=== PATIENT | male | born 1940 | race Caucasian/White ===

== ENCOUNTER 2017-02-06 17:25 | Inpatient (IN) | payer MEDICARE, MEDICAID ==
[2017-02-06] MEDS: NYSTATIN OINTMENT 15 GM TOP (04:35)
[2017-02-06] MEDS: NS 1,000 ML IV (18:34)
[2017-02-06] MEDS ORDERED: BISACODYL 10 MG SUPP PR (18:45)
[2017-02-06] MEDS ORDERED: DEXTROSE 50% 50 ML SYRINGE IV (19:30)
[2017-02-06] MEDS ORDERED: GLUCAGON FOR INJ 1 MG VIAL (J1610) SC (19:30)
[2017-02-06] MEDS ORDERED: GLUCOSE 4 GM CHEW TABLET PO (19:30)
[2017-02-06 20:16] LABS: HEMATOCRIT 34.8 % (42.0-52.0); HEMOGLOBIN 11.6 g/dl (14.0-18.0)
[2017-02-06 20:41] LABS: LACTIC ACID SEPSIS PROTOCOL 1.1 MMOL/L (0.4-2.0)
[2017-02-06] MEDS: HumaLOG INSULIN (NovoLOG) PER UNIT SC (21:00)
[2017-02-06] MEDS: FENOFIBRATE 145 MG TAB (TRICOR) PO (21:00)
[2017-02-06 21:20] LABS: BEDSIDE GLUCOSE 217 MG/DL (83-110)
[2017-02-06] MEDS: DULoxetine 30 MG CAP (CYMBALTA) PO (22:44)
[2017-02-06] MEDS: DONEPEZIL 5 MG TAB PO (22:44)
[2017-02-06] MEDS: tiZANidine 4 MG TAB PO (22:44)
[2017-02-06] MEDS: PREGABALIN 100 MG CAP (LYRICA) PO (22:44)
[2017-02-06] MEDS: GABAPENTIN 100 MG CAP PO (22:44)
[2017-02-07 00:41] LABS: HEMATOCRIT 36.6 % (42.0-52.0)
[2017-02-07] MEDS: NS 1,000 ML IV (05:10)
[2017-02-07] MEDS: tiZANidine 4 MG TAB PO ×3 (06:05→22:00)
[2017-02-07 06:17] LABS: HEMATOCRIT 30.8 % (42.0-52.0); HEMOGLOBIN 10.1 g/dl (14.0-18.0); MEAN CORPUSCULAR HEMOGLOBIN 28.5 pg (27.0-33.0); MEAN CORPUSCULAR HGB CONC 32.8 g/dl (32.0-36.5); MEAN CORPUSCULAR VOLUME 86.8 fl (80.0-96.0); PLATELET COUNT, AUTOMATED 347 10^3/uL (150-450); RED BLOOD COUNT 3.55 10^6/uL (4.30-6.10); RED CELL DISTRIBUTION WIDTH 14.6 % (11.5-14.5); WHITE BLOOD COUNT 7.6 10^3/uL (4.0-10.0)
[2017-02-07 06:35] LABS: ALBUMIN 2.2 GM/DL (3.2-5.2); ALBUMIN/GLOBULIN RATIO 0.61 (1.00-1.93); ALKALINE PHOSPHATASE 35 U/L (45-117); ALT/SGPT 17 U/L (12-78); ANION GAP 11 MEQ/L (8-16); AST/SGOT 18 U/L (7-37); BILIRUBIN,TOTAL 0.3 MG/DL (0.2-1.0); BLOOD UREA NITROGEN 34 MG/DL (7-18); CALCIUM LEVEL 8.1 MG/DL (8.8-10.2); CARBON DIOXIDE LEVEL 23 MEQ/L (21-32); CHLORIDE LEVEL 112 MEQ/L (98-107); CREATININE FOR GFR 1.08 MG/DL (0.70-1.30); GLOMERULAR FILTRATION RATE > 60.0 (>42); GLUCOSE, FASTING 153 MG/DL (83-110); POTASSIUM SERUM 3.8 MEQ/L (3.5-5.1); SODIUM LEVEL 146 MEQ/L (136-145); TOTAL PROTEIN 5.8 GM/DL (6.4-8.2)
[2017-02-07] MEDS: HumaLOG INSULIN (NovoLOG) PER UNIT SC ×4 (07:30→21:00)
[2017-02-07] MEDS: METOPROLOL SUCC (TopROL XL) 50MG **XL** TAB PO (09:00)
[2017-02-07] MEDS: GABAPENTIN 100 MG CAP PO ×4 (09:00→21:00)
[2017-02-07] MEDS: PREGABALIN 100 MG CAP (LYRICA) PO ×2 (09:00→21:00)
[2017-02-07] MEDS: DULoxetine 30 MG CAP (CYMBALTA) PO ×2 (09:00→21:00)
[2017-02-07] MEDS: CEFTRIAXONE SOD 1 GM in APPROPRIATE DILUENT 1 EA IV (11:51)
[2017-02-07] MEDS ORDERED: PROPOFOL 200 MG/20 ML VIAL As Ordered (12:35)
[2017-02-07] MEDS ORDERED: fentaNYL 250 MCG/5 ML INJECTION (J3010) As Ordered (12:35)
[2017-02-07] MEDS ORDERED: dexameTHASONE 4 MG/ML 1ML VIAL (J1100) As Ordered (12:35)
[2017-02-07] MEDS ORDERED: LIDOCAINE 2% INJ 100 MG/5 ML SDV (FOR ANES.) As Ordered (12:35)
[2017-02-07] MEDS ORDERED: ONDANSETRON 4MG/2ML VIAL (J2405) As Ordered (12:35)
[2017-02-07] MEDS ORDERED: MIDAZOLAM INJ 2 MG/2 ML VIAL (J2250) As Ordered (12:35)
[2017-02-07] MEDS ORDERED: fentaNYL 100 MCG/2 ML INJECTION (J3010) IV (13:45)
[2017-02-07] MEDS ORDERED: LR 1,000 ML IV (13:45)
[2017-02-07] MEDS ORDERED: ONDANSETRON 4MG/2ML VIAL (J2405) IV (13:45)
[2017-02-07 14:15] LABS: BEDSIDE GLUCOSE 153 MG/DL (83-110)
[2017-02-07] MEDS: FENOFIBRATE 145 MG TAB (TRICOR) PO (21:00)
[2017-02-07] MEDS: ATORVASTATIN 20 MG TAB PO (21:00)
[2017-02-07] MEDS: NYSTATIN CREAM 15 GM TOP (21:00)
[2017-02-07] MEDS: DONEPEZIL 5 MG TAB PO (21:00)
[2017-02-07 21:16] LABS: BEDSIDE GLUCOSE 137 MG/DL (83-110)
[2017-02-07 22:33] LABS: BEDSIDE GLUCOSE 160 MG/DL (83-110)
[2017-02-07 22:41] LABS: HEMATOCRIT 29.7 % (42.0-52.0); HEMOGLOBIN 9.6 g/dl (14.0-18.0); MEAN CORPUSCULAR HEMOGLOBIN 28.6 pg (27.0-33.0); MEAN CORPUSCULAR HGB CONC 32.3 g/dl (32.0-36.5); MEAN CORPUSCULAR VOLUME 88.4 fl (80.0-96.0); PLATELET COUNT, AUTOMATED 298 10^3/uL (150-450); RED BLOOD COUNT 3.36 10^6/uL (4.30-6.10); RED CELL DISTRIBUTION WIDTH 14.8 % (11.5-14.5); WHITE BLOOD COUNT 8.1 10^3/uL (4.0-10.0)
[2017-02-08 02:44] LABS: HEMATOCRIT 27.7 % (42.0-52.0)
[2017-02-08] MEDS: tiZANidine 4 MG TAB PO ×3 (06:10→22:48)
[2017-02-08 06:42] LABS: HEMATOCRIT 27.6 % (42.0-52.0); MEAN CORPUSCULAR HEMOGLOBIN 28.8 pg (27.0-33.0); MEAN CORPUSCULAR HGB CONC 32.6 g/dl (32.0-36.5); MEAN CORPUSCULAR VOLUME 88.2 fl (80.0-96.0); PLATELET COUNT, AUTOMATED 275 10^3/uL (150-450); RED BLOOD COUNT 3.13 10^6/uL (4.30-6.10); RED CELL DISTRIBUTION WIDTH 14.6 % (11.5-14.5); WHITE BLOOD COUNT 6.4 10^3/uL (4.0-10.0)
[2017-02-08 07:00] LABS: ALBUMIN 2.1 GM/DL (3.2-5.2); ALBUMIN/GLOBULIN RATIO 0.62 (1.00-1.93); ALKALINE PHOSPHATASE 33 U/L (45-117); ALT/SGPT 15 U/L (12-78); ANION GAP 7 MEQ/L (8-16); AST/SGOT 21 U/L (7-37); BILIRUBIN,TOTAL 0.4 MG/DL (0.2-1.0); BLOOD UREA NITROGEN 37 MG/DL (7-18); CALCIUM LEVEL 8.3 MG/DL (8.8-10.2); CARBON DIOXIDE LEVEL 24 MEQ/L (21-32); CHLORIDE LEVEL 112 MEQ/L (98-107); CREATININE FOR GFR 0.74 MG/DL (0.70-1.30); GLOMERULAR FILTRATION RATE > 60.0 (>42); GLUCOSE, FASTING 152 MG/DL (83-110); POTASSIUM SERUM 3.9 MEQ/L (3.5-5.1); SODIUM LEVEL 143 MEQ/L (136-145); TOTAL PROTEIN 5.5 GM/DL (6.4-8.2)
[2017-02-08] MEDS: DULoxetine 30 MG CAP (CYMBALTA) PO ×2 (08:11→22:47)
[2017-02-08] MEDS: GABAPENTIN 100 MG CAP PO ×3 (08:12→22:48)
[2017-02-08] MEDS: HumaLOG INSULIN (NovoLOG) PER UNIT SC ×4 (08:12→21:00)
[2017-02-08] MEDS: METOPROLOL SUCC (TopROL XL) 50MG **XL** TAB PO (08:12)
[2017-02-08] MEDS: NYSTATIN CREAM 15 GM TOP ×2 (08:13→22:48)
[2017-02-08] MEDS: PREGABALIN 100 MG CAP (LYRICA) PO ×2 (10:04→22:47)
[2017-02-08] MEDS: CEFTRIAXONE SOD 1 GM in APPROPRIATE DILUENT 1 EA IV (11:01)
[2017-02-08 12:15] LABS: BEDSIDE GLUCOSE 144 MG/DL (83-110)
[2017-02-08 17:12] LABS: BEDSIDE GLUCOSE 160 MG/DL (83-110)
[2017-02-08 21:12] LABS: BEDSIDE GLUCOSE 128 MG/DL (83-110)
[2017-02-08] MEDS: FENOFIBRATE 145 MG TAB (TRICOR) PO (22:47)
[2017-02-08] MEDS: ATORVASTATIN 20 MG TAB PO (22:47)
[2017-02-08] MEDS: DONEPEZIL 5 MG TAB PO (22:47)
[2017-02-09] MEDS: tiZANidine 4 MG TAB PO ×3 (05:28→22:13)
[2017-02-09 07:19] LABS: HEMATOCRIT 28.7 % (42.0-52.0); HEMOGLOBIN 9.5 g/dl (14.0-18.0); MEAN CORPUSCULAR HEMOGLOBIN 28.7 pg (27.0-33.0); MEAN CORPUSCULAR HGB CONC 33.1 g/dl (32.0-36.5); MEAN CORPUSCULAR VOLUME 86.7 fl (80.0-96.0); PLATELET COUNT, AUTOMATED 265 10^3/uL (150-450); RED BLOOD COUNT 3.31 10^6/uL (4.30-6.10); RED CELL DISTRIBUTION WIDTH 14.7 % (11.5-14.5); WHITE BLOOD COUNT 5.3 10^3/uL (4.0-10.0)
[2017-02-09 07:53] LABS: ALBUMIN 2.1 GM/DL (3.2-5.2); ALBUMIN/GLOBULIN RATIO 0.68 (1.00-1.93); ALKALINE PHOSPHATASE 32 U/L (45-117); ALT/SGPT 18 U/L (12-78); ANION GAP 8 MEQ/L (8-16); AST/SGOT 25 U/L (7-37); BILIRUBIN,TOTAL 0.3 MG/DL (0.2-1.0); BLOOD UREA NITROGEN 25 MG/DL (7-18); CARBON DIOXIDE LEVEL 24 MEQ/L (21-32); CHLORIDE LEVEL 109 MEQ/L (98-107); CREATININE FOR GFR 0.59 MG/DL (0.70-1.30); GLOMERULAR FILTRATION RATE > 60.0 (>42); GLUCOSE, FASTING 113 MG/DL (83-110); POTASSIUM SERUM 3.8 MEQ/L (3.5-5.1); SODIUM LEVEL 141 MEQ/L (136-145); TOTAL PROTEIN 5.2 GM/DL (6.4-8.2)
[2017-02-09] MEDS: DULoxetine 30 MG CAP (CYMBALTA) PO ×2 (08:08→22:13)
[2017-02-09] MEDS: PREGABALIN 100 MG CAP (LYRICA) PO ×2 (08:08→22:13)
[2017-02-09] MEDS: GABAPENTIN 100 MG CAP PO ×3 (08:08→22:14)
[2017-02-09] MEDS: NYSTATIN CREAM 15 GM TOP ×2 (08:09→22:14)
[2017-02-09] MEDS: METOPROLOL SUCC (TopROL XL) 50MG **XL** TAB PO (08:09)
[2017-02-09] MEDS: HumaLOG INSULIN (NovoLOG) PER UNIT SC ×4 (08:10→21:00)
[2017-02-09] MEDS: CEFTRIAXONE SOD 1 GM in APPROPRIATE DILUENT 1 EA IV (10:35)
[2017-02-09 12:00] LABS: BEDSIDE GLUCOSE 182 MG/DL (83-110)
[2017-02-09 16:53] LABS: BEDSIDE GLUCOSE 177 MG/DL (83-110)
[2017-02-09 20:24] LABS: BEDSIDE GLUCOSE 250 MG/DL (83-110)
[2017-02-09] MEDS: FENOFIBRATE 145 MG TAB (TRICOR) PO (22:13)
[2017-02-09] MEDS: ATORVASTATIN 20 MG TAB PO (22:14)
[2017-02-09] MEDS: DONEPEZIL 5 MG TAB PO (22:14)
[2017-02-09] MEDS: ACETAMINOPHEN 650MG ER TAB (TYLENOL ARTHRITIS) PO (22:15)
[2017-02-10] MEDS: tiZANidine 4 MG TAB PO ×3 (05:40→21:38)
[2017-02-10 07:03] LABS: HEMATOCRIT 27.6 % (42.0-52.0); HEMOGLOBIN 9.3 g/dl (14.0-18.0); MEAN CORPUSCULAR HEMOGLOBIN 29.2 pg (27.0-33.0); MEAN CORPUSCULAR HGB CONC 33.7 g/dl (32.0-36.5); MEAN CORPUSCULAR VOLUME 86.8 fl (80.0-96.0); PLATELET COUNT, AUTOMATED 263 10^3/uL (150-450); RED BLOOD COUNT 3.18 10^6/uL (4.30-6.10); RED CELL DISTRIBUTION WIDTH 14.6 % (11.5-14.5); WHITE BLOOD COUNT 4.6 10^3/uL (4.0-10.0)
[2017-02-10 07:16] LABS: BEDSIDE GLUCOSE 150 MG/DL (83-110)
[2017-02-10 07:32] LABS: ALBUMIN 2.1 GM/DL (3.2-5.2); ALBUMIN/GLOBULIN RATIO 0.68 (1.00-1.93); ALKALINE PHOSPHATASE 38 U/L (45-117); ALT/SGPT 16 U/L (12-78); ANION GAP 7 MEQ/L (8-16); AST/SGOT 20 U/L (7-37); BILIRUBIN,TOTAL 0.2 MG/DL (0.2-1.0); BLOOD UREA NITROGEN 19 MG/DL (7-18); CALCIUM LEVEL 8.1 MG/DL (8.8-10.2); CARBON DIOXIDE LEVEL 26 MEQ/L (21-32); CHLORIDE LEVEL 110 MEQ/L (98-107); CREATININE FOR GFR 0.51 MG/DL (0.70-1.30); GLOMERULAR FILTRATION RATE > 60.0 (>42); GLUCOSE, FASTING 139 MG/DL (83-110); POTASSIUM SERUM 3.8 MEQ/L (3.5-5.1); SODIUM LEVEL 143 MEQ/L (136-145); TOTAL PROTEIN 5.2 GM/DL (6.4-8.2)
[2017-02-10] MEDS: DULoxetine 30 MG CAP (CYMBALTA) PO ×2 (08:24→21:38)
[2017-02-10] MEDS: METOPROLOL SUCC (TopROL XL) 50MG **XL** TAB PO (08:24)
[2017-02-10] MEDS: GABAPENTIN 100 MG CAP PO ×3 (08:24→21:38)
[2017-02-10] MEDS: SILVER SULFADIAZINE 1% CR 50 GM JAR TOP ×3 (08:24→21:39)
[2017-02-10] MEDS: PREGABALIN 100 MG CAP (LYRICA) PO ×2 (08:24→21:38)
[2017-02-10] MEDS: HumaLOG INSULIN (NovoLOG) PER UNIT SC ×4 (08:25→21:00)
[2017-02-10] MEDS: NYSTATIN CREAM 15 GM TOP ×2 (08:26→21:39)
[2017-02-10] MEDS: CEFTRIAXONE SOD 1 GM in APPROPRIATE DILUENT 1 EA IV (11:10)
[2017-02-10 11:40] LABS: BEDSIDE GLUCOSE 123 MG/DL (83-110)
[2017-02-10 16:37] LABS: BEDSIDE GLUCOSE 205 MG/DL (83-110)
[2017-02-10 20:52] LABS: BEDSIDE GLUCOSE 242 MG/DL (83-110)
[2017-02-10] MEDS: FENOFIBRATE 145 MG TAB (TRICOR) PO (21:38)
[2017-02-10] MEDS: DONEPEZIL 5 MG TAB PO (21:38)
[2017-02-10] MEDS: ATORVASTATIN 20 MG TAB PO (21:38)
[2017-02-11] MEDS: tiZANidine 4 MG TAB PO (06:04)
[2017-02-11 06:13] LABS: HEMATOCRIT 26.9 % (42.0-52.0); HEMOGLOBIN 9.3 g/dl (14.0-18.0); MEAN CORPUSCULAR HEMOGLOBIN 29.9 pg (27.0-33.0); MEAN CORPUSCULAR HGB CONC 34.6 g/dl (32.0-36.5); MEAN CORPUSCULAR VOLUME 86.5 fl (80.0-96.0); PLATELET COUNT, AUTOMATED 255 10^3/uL (150-450); RED BLOOD COUNT 3.11 10^6/uL (4.30-6.10); RED CELL DISTRIBUTION WIDTH 14.6 % (11.5-14.5); WHITE BLOOD COUNT 4.5 10^3/uL (4.0-10.0)
[2017-02-11 06:47] LABS: ALBUMIN/GLOBULIN RATIO 0.65 (1.00-1.93); ALKALINE PHOSPHATASE 40 U/L (45-117); ALT/SGPT 15 U/L (12-78); ANION GAP 6 MEQ/L (8-16); AST/SGOT 20 U/L (7-37); BILIRUBIN,TOTAL 0.2 MG/DL (0.2-1.0); BLOOD UREA NITROGEN 17 MG/DL (7-18); CARBON DIOXIDE LEVEL 27 MEQ/L (21-32); CHLORIDE LEVEL 108 MEQ/L (98-107); GLOMERULAR FILTRATION RATE > 60.0 (>42); GLUCOSE, FASTING 143 MG/DL (83-110); POTASSIUM SERUM 3.6 MEQ/L (3.5-5.1); SODIUM LEVEL 141 MEQ/L (136-145); TOTAL PROTEIN 5.1 GM/DL (6.4-8.2)
[2017-02-11] MEDS: DULoxetine 30 MG CAP (CYMBALTA) PO (08:09)
[2017-02-11] MEDS: METOPROLOL SUCC (TopROL XL) 50MG **XL** TAB PO (08:10)
[2017-02-11] MEDS: PREGABALIN 100 MG CAP (LYRICA) PO (08:10)
[2017-02-11] MEDS: GABAPENTIN 100 MG CAP PO (08:10)
[2017-02-11] MEDS: NYSTATIN CREAM 15 GM TOP (08:11)
[2017-02-11] MEDS: SILVER SULFADIAZINE 1% CR 50 GM JAR TOP (08:11)
[2017-02-11] MEDS: HumaLOG INSULIN (NovoLOG) PER UNIT SC (08:12)
[2017-02-18 00:06] LABS: Amm Acid Urate 10 % (.); COMMENT Note: (.)
== END 2017-02-11 11:44 | DRG 700 ==
LOC: M MSPAV 17:25
PROC: 0TCB8ZZ Extirpation of Matter from Bladder, Via Natural or Artificial Opening Endoscopic (ICD-10-PCS; principal; 2017-02-07 08:11)
DX: T83.091A Other mechanical complication of indwelling urethral catheter, initial encounter (principal); I50.9 Heart failure, unspecified; K59.00 Constipation, unspecified; E11.51 Type 2 diabetes mellitus with diabetic peripheral angiopathy without gangrene; E87.6 Hypokalemia; N20.0 Calculus of kidney; L89.102 Pressure ulcer of unspecified part of back, stage 2; I11.0 Hypertensive heart disease with heart failure; E55.9 Vitamin D deficiency, unspecified; N31.9 Neuromuscular dysfunction of bladder, unspecified; R31.0 Gross hematuria; N28.1 Cyst of kidney, acquired; F03.90 Unspecified dementia, unspecified severity, without behavioral disturbance, psychotic disturbance, mood disturbance, and anxiety; Z79.82 Long term (current) use of aspirin; Z79.899 Other long term (current) drug therapy; Z79.4 Long term (current) use of insulin; Z88.8 Allergy status to other drugs, medicaments and biological substances; Y84.6 Urinary catheterization as the cause of abnormal reaction of the patient, or of later complication, without mention of misadventure at the time of the procedure; Z87.891 Personal history of nicotine dependence